=== PATIENT | female | born 1995 | race Caucasian/White ===

== ENCOUNTER 2017-03-25 10:59 | Emergency (ER) | payer MEDICAID, OTHER, SELFPAY ==
[~2017-03-25] VITALS: Ht 162.6 cm; Wt 61.9 kg
[2017-03-25 11:01] VITALS: BP 133/89
[2017-03-25] MEDS ORDERED: ACETAMINOPHEN 325 MG TABLET ONE (11:57)
[2017-03-25] MEDS ORDERED: KETOROLAC 30 MG/1 ML ONE (11:57)
[2017-03-25] MEDS ORDERED: ACETAMINOPHEN 325 MG TABLET PO ONE (12:00)
[2017-03-25] MEDS ORDERED: KETOROLAC 30 MG/1 ML IM ONE (12:00)
== END 2017-03-25 13:13 | disposition home or self-care (01) ==
LOC: ED 12:10
DX: Z87.891 Personal history of nicotine dependence (principal); H66.003 Acute suppurative otitis media without spontaneous rupture of ear drum, bilateral
CPT/HCPCS: 71020; 96372; 99284; J1885

== ENCOUNTER 2018-01-28 00:28 | Emergency (ER) | payer MEDICAID ==
[2018-01-28] MEDS ORDERED: SODIUM CHLORIDE 0.9% 1,000ML IVBOLUS ONE (01:00)
[2018-01-28] MEDS ORDERED: THIAMINE 100MG TABLET PO ONE (01:00)
[2018-01-28] MEDS ORDERED: SODIUM CHLORIDE FLUSH 10ML SYR IVF ONE (01:00)
[2018-01-28] MEDS ORDERED: THIAMINE 100MG TABLET ONE (01:09)
[2018-01-28 01:11] VITALS: BP 138/99
[2018-01-28 01:17] LABS: BASOPHILS # (AUTO) 0.03 x10^3/uL (0-0.1); BASOPHILS % (AUTO) 0 % (0-1); EOSINOPHILS # (AUTO) 0.02 x10^3/uL (0-0.4); EOSINOPHILS % (AUTO) 0 % (1-7); LYMPHOCYTES # (AUTO) 1.44 x10^3/uL (1-3.4); LYMPHOCYTES % (AUTO) 20 % (22-44); MD NO; MEAN CORPUSCULAR HEMOGLOBIN 29.9 pg (27.0-34.8); MEAN CORPUSCULAR HGB CONC 33.8 g/dL (32.4-35.8); MEAN CORPUSCULAR VOLUME 88.4 fL (80-100); MEAN PLATELET VOLUME 8.6 fL (7.4-10.4); MONOCYTES # (AUTO) 0.35 x10^3/uL (0.2-0.8); MONOCYTES % (AUTO) 5 % (2-9); NEUTROPHILS # (AUTO) 5.43 x10^3/uL (1.8-6.8); NEUTROPHILS % (AUTO) 75 % (42-75); PLATELET COUNT 245 x10^3/uL (130-400); RED BLOOD COUNT 4.56 x10^6/uL (3.82-5.3); RED CELL DISTRIBUTION WIDTH 15.7 % (9.6-15.2)
[2018-01-28 01:23] LABS: ALANINE AMINOTRANSFERASE 45 U/L (12-78); ALBUMIN 3.8 g/dL (3.4-5.0); ANION GAP 9 mmol/L (5-15); CALCIUM 8.4 mg/dL (8.5-10.1); CHLORIDE 104 mmol/L (98-107); CREATININE 0.65 mg/dL (0.55-1.02)
[2018-01-28 01:27] LABS: ALKALINE PHOSPHATASE 90 U/L (45-117); BILIRUBIN,TOTAL 3.1 mg/dL (0.2-1.0); TOTAL PROTEIN 7.6 g/dL (6.4-8.2)
== END 2018-01-28 02:26 | disposition home or self-care (01) ==
LOC: ED 01:34
DX: F15.10 Other stimulant abuse, uncomplicated (principal); R05 Cough
CPT/HCPCS: 36415; 80053; 83690; 84703; 85025; 93005; 99285; J7030